=== PATIENT | female | born 1975 | race Caucasian/White ===

== ENCOUNTER 2017-02-27 18:48 | Emergency (ER) | payer SELFPAY ==
--- NOTE | ~2017-02-27 | ER ---
PATIENT'S NAME: BRIDGET MOONEY [facility] AGE: 41 Y [address] ROOM: [place] [address] LOCATION: [facility] ADMIT DATE: 02/27/2017 ER/Outpatient Report DISCHARGE DATE: 02/27/2017 FAMILY PHYSICIAN: PHYSICIAN, NO ATTENDING PHYSICIAN: Theodore You Time of Arrival: 1851 hours. Time of Exam: 1851 hours. CHIEF COMPLAINT: Right ankle pain. HISTORY OF PRESENT ILLNESS: The patient states she has been having right lateral ankle pain and swelling off and on since Tuesday. She denies any injury to the area, but states it is very tender to touch. She denies having any numbness or tingling of her toes. ALLERGIES: SHE HAS NO KNOWN ALLERGIES. CURRENT MEDICATIONS: On the chart and reviewed by me. PAST MEDICAL HISTORY: Includes depression, anxiety, and DVT back in 2009. PAST SURGERIES: Cholecystectomy and . SOCIAL HISTORY: She smokes 1 pack per day and has for the last 23 years. Denies use of drugs and alcohol. REVIEW OF SYSTEMS: All negative other than those mentioned in the HPI. PHYSICAL EXAMINATION: VITAL SIGNS: She weighed 94.2 kg. Blood pressure is 127/68, pulse of 88, respirations 18, temperature of 98, and O2 saturation 94% on room air. GENERAL: She is awake, alert, and oriented x4. SKIN: [place], warm, and dry. LUNGS: Respirations are even and nonlabored. Lung sounds are clear throughout. HEART: Regular rate and rhythm. MUSCULOSKELETAL: Right ankle was pink, warm to touch. No deformity of the PATIENT'S NAME: BRIDGET MOONEY [facility] AGE: 41 Y [address] ROOM: [place] [address] LOCATION: [facility] ADMIT DATE: 02/27/2017 ER/Outpatient Report DISCHARGE DATE: 02/27/2017 FAMILY PHYSICIAN: PHYSICIAN, NO ATTENDING PHYSICIAN: Theodore You ankle was noted. No swelling or redness at this time. Temperature is equal bilaterally. Pedal pulses are strong. She has negative Homans. Negative pain in the calf area at all. She is tender to touch right on the lateral malleolus, no other areas of the ankle. DIAGNOSTIC DATA: X-ray was completed. No bony abnormality is seen. Reviewed with Dr. You. IMPRESSION: Contusion to the right ankle. PLAN: Jose wrap was applied for support. Home, rest, elevate, ice. Tylenol or ibuprofen for discomfort. If problems persist or continue, she needs to follow up with either her primary provider or an orthopedic doctor, she verbalized understanding. CATHY CORDERO APRN FOR DO JIMMY BUENO/shayla /[id number] d: 02/27/17 2335 t: 03/08/17 0512, OUTPATIENT REPORT
== END 2017-02-27 19:56 | disposition disaster alternative care site (69) ==
LOC: GMED 18:48
DX: S90.01XA Contusion of right ankle, initial encounter (principal); F17.210 Nicotine dependence, cigarettes, uncomplicated; F32.9 Major depressive disorder, single episode, unspecified; F41.9 Anxiety disorder, unspecified; Z90.49 Acquired absence of other specified parts of digestive tract